=== PATIENT | male | born 1950 | race Caucasian/White ===

== ENCOUNTER 2017-01-13 18:44 | Inpatient (IN) | payer MEDICARE, MEDICAID ==
[~2017-01-13] VITALS: Ht 180.3 cm; Wt 82.0 kg
[~2017-01-13 18:44] MED LIST: CHLORO250 PO; DICL50TA PO; ENAL20TA PO; ROBA750T PO
[2017-01-13 18:45] VITALS: BP 165/81; PULSE 108; RESP 18; TEMP 98.1; O2SAT 96
--- NOTE | 2017-01-13 18:56 | PD ---
HPI . Dysarthria and dysphagia Chief Complaint: Facial weakness Time Seen by Provider: 18:50 Travel History International Travel<30 days: No Contact w/Intl Traveler<30days: No History of Present Illness HPI The patient presents stating that the left side of his face feels weak. It felt weak on awakening this morning. He feels like his speech is slurred. He states that he had difficulty swallowing his food shortly prior to presentation. He presents to us concerned that he has had a stroke. He denies any unusual extremity weakness. He does not have a headache or diplopia. The patient reports a history of bone cancer. He states that he also has a mass in his throat. 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; skin ca) Social History Alcohol Use: No Tobacco Use: No (former smoker) Substance Use: No Allergies-Medications (Allergen,Severity, Reaction): Coded Allergies: No Known Allergies (Unverified , 07/23/16) Reported Meds & Prescriptions Reported Meds & Active Scripts Active Robaxin (Methocarbamol) 750 Mg Tab 750 Mg PO TID PRN Diclofenac Potassium 50 Mg Tab 50 Mg PO TID PRN Reported Enalapril (Enalapril Maleate) 20 Mg Tab 20 Mg PO DAILY Chlorothiazide 250 Mg Tab 250 Mg PO DAILY Review of Systems Except as stated in HPI: all other systems reviewed are Neg General / Constitutional: No: Fever, Chills Eyes: No: Diploplia, Blurred Vision HENT: No: Headaches Respiratory: No: Shortness of Breath Gastrointestinal: No: Nausea Neurologic: Positive: Weakness, Focal Abnormalities, Slurred Speech, No: Change in Mentation Physical Exam Narrative GENERAL: Patient is awake and alert and in no acute distress. SKIN: Warm and dry. HEAD: Atraumatic. Normocephalic. EYES: Pupils equal and round. ENT: No nasal bleeding or discharge. Mucous membranes pink and moist. NECK: Trachea midline. CARDIOVASCULAR: Regular rate and rhythm. RESPIRATORY: No accessory muscle use. GASTROINTESTINAL: Abdomen soft, non-tender, nondistended. MUSCULOSKELETAL: Marked atrophy of his right upper extremity. Patient reports previous history of polio. NEUROLOGICAL: Awake and alert. No obvious cranial nerve deficits. Motor grossly within normal limits with the exception of the right upper extremity. Normal speech. PSYCHIATRIC: Appropriate mood and affect; insight and judgment normal. Data Data Orders Electrocardiogram (01/13/17 18:47) Prothrombin Time / Inr (Pt) (01/13/17 18:47) Act Partial Throm Time (Ptt) (01/13/17 18:47) Complete Blood Count With Diff (01/13/17 18:47) Comprehensive Metabolic Panel (01/13/17 18:47) Creatine Kinase (Cpk) (01/13/17 18:47) Troponin I (01/13/17 18:47) Ct Brain W/O Iv Contrast(Rout) (01/13/17 18:47) Ecg Monitoring (01/13/17 18:47) Iv Access Insert/Monitor (01/13/17 18:47) Oximetry (01/13/17 18:47) Blood Glucose (01/13/17 18:47) Sodium Chloride 0.9% Flush (Ns Flush) (01/13/17 19:00) MDM Medical Decision Making Medical Screen Exam Complete: Yes Emergency Medical Condition: Yes Differential Diagnosis Differential diagnosis includes but is not limited to TIA, CVA, brain tumor, migraine, anxiety Narrative Course Patient presents concerned that he has had a stroke. He has had polio affecting his right upper extremity. Otherwise, his neurological exam is nonfocal. A stroke workup has been ordered. His care is being turned over to Dr. Rodriguez pending his workup. Diagnosis Primary Impression: Dysarthria Additional Impression: Dysphagia Qualified Code: R13.10 - Dysphagia, unspecified type Condition: Cassandra Lo MD Jan 13, 2017 18:56
[2017-01-13] MEDS ORDERED: SODIUM CHLORIDE 0.9% FLUSH 10 ML FLUSH IVF PRN (19:00)
[2017-01-13 19:04] LABS: AUTOMATED NEUTROPHIL # 3.5 TH/MM3 (1.8-7.7); BASOPHIL # 0.1 TH/MM3 (0-0.2); EOSINOPHIL # 0.1 TH/MM3 (0-0.4); HEMO FLAGS DIFF FINAL; LYMPH % 23.1 % (9.0-44.0); LYMPHOCYTE # 1.2 TH/MM3 (1.0-4.8); MEAN CORPUSCULAR HEMOGLOBIN 30.7 PG (27.0-34.0); MONO % 5.5 % (0.0-8.0); NEUT % 69.4 % (16.0-70.0); PLATELET COUNT 106 TH/MM3 (150-450); RED BLOOD COUNT 4.63 MIL/MM3 (4.50-5.90); WHITE BLOOD COUNT 5.2 TH/MM3 (4.0-11.0)
[2017-01-13 19:10] LABS: CHLORIDE 98 MEQ/L (98-107); SODIUM (NA) 134 MEQ/L (136-145)
[2017-01-13 19:14] LABS: ANION GAP 9 MEQ/L (5-15); BICARBONATE 27.2 MEQ/L (21.0-32.0); BLOOD UREA NITROGEN 12 MG/DL (7-18)
[2017-01-13 19:16] LABS: APTT (PATIENT) 27.1 SEC (24.3-30.1); INTERNATIONAL NORMALIZED RATIO 1.2 RATIO; PROTHROMBIN TIME - PATIENT 13.7 SEC (9.8-11.6)
[2017-01-13 19:17] LABS: ALT (GPT) 77 U/L (12-78); AST (GOT) 541 U/L (15-37); GLOMERULAR FILTRATION RATE 76 ML/MIN (>89)
[2017-01-13 19:19] LABS: TOTAL BILIRUBIN ADULT 3.6 MG/DL (0.2-1.0)
--- NOTE | 2017-01-13 19:19 | RADRPT ---
EXAM DATE/TIME: 01/13/2017 18:52 [facility] COMPARISON: No previous studies available for comparison. INDICATIONS : Left facial weakness, slurred speech and difficulty swallowing since this morning. Evaluate for cere bral vascular accident. RADIATION DOSE: 60.73 CTDIvol (mGy) MEDICAL HISTORY : Hypertension. SURGICAL HISTORY : None. ENCOUNTER: Initial ACUITY: 1 day PAIN SCALE: 0/10 LOCATION: cranial TECHNIQUE: Multiple contiguous axial images were obtained of the head. Using automated exposure control and adj ustment of the mA and/or kV according to patient size, radiation dose was kept as low as reasonably a chievable to obtain optimal diagnostic quality images. DICOM format image data is available electro nically for review and comparison. FINDINGS: CEREBRUM: The ventricles are normal for age. No evidence of midline shift, mass lesion, hemorrhage or acute in farction. No extra-axial fluid collections are seen. POSTERIOR FOSSA: The cerebellum and brainstem are intact. The 4th ventricle is midline. The cerebellopontine angle i s unremarkable. EXTRACRANIAL: The visualized portion of the orbits is intact. SKULL: The calvaria is intact. No evidence of skull fracture. CONCLUSION: No acute disease. Eloy Garg Jr., MD on January 13, 2017 at 19:16 Board Certified Radiologist. This report was verified electronically.
[2017-01-13 19:20] LABS: ALKALINE PHOSPHATASE 482 U/L (45-117)
[2017-01-13 19:21] LABS: CREATINE KINASE 32 U/L (39-308)
[2017-01-13] MEDS ORDERED: OXYC-259 PO (19:26)
[2017-01-13 19:28] VITALS: PULSE 101; O2SAT 96
--- NOTE | 2017-01-13 19:41 | PD ---
Physical Exam Time Seen by Provider: 19:[address] Carlson left this patient with me to check the laboratory/imaging and make a disposition. Data Data Last Documented VS Vital Signs Date Time Temp Pulse Resp B/P Pulse Ox O2 Delivery O2 Flow Rate FiO2 01/13/17 19:31 101 Room Air 01/13/17 19:28 96 01/13/17 18:45 98.1 18 165/81 Orders Electrocardiogram (01/13/17 18:47) Prothrombin Time / Inr (Pt) (01/13/17 18:47) Act Partial Throm Time (Ptt) (01/13/17 18:47) Complete Blood Count With Diff (01/13/17 18:47) Comprehensive Metabolic Panel (01/13/17 18:47) Creatine Kinase (Cpk) (01/13/17 18:47) Troponin I (01/13/17 18:47) Ct Brain W/O Iv Contrast(Rout) (01/13/17 18:47) Ecg Monitoring (01/13/17 18:47) Iv Access Insert/Monitor (01/13/17 18:47) Oximetry (01/13/17 18:47) Blood Glucose (01/13/17 18:47) Sodium Chloride 0.9% Flush (Ns Flush) (01/13/17 19:00) Labs Laboratory Tests Test 01/13/17 18:50 White Blood Count 5.2 TH/MM3 Red Blood Count 4.63 MIL/MM3 Hemoglobin 14.2 GM/DL Hematocrit 43.0 % Mean Corpuscular Volume 93.0 FL Mean Corpuscular Hemoglobin 30.7 PG Mean Corpuscular Hemoglobin 33.0 % Concent Red Cell Distribution Width 17.0 % Platelet Count 106 TH/MM3 Mean Platelet Volume 10.3 FL Neutrophils (%) (Auto) 69.4 % Lymphocytes (%) (Auto) 23.1 % Monocytes (%) (Auto) 5.5 % Eosinophils (%) (Auto) 1.0 % Basophils (%) (Auto) 1.0 % Neutrophils # (Auto) 3.5 TH/MM3 Lymphocytes # (Auto) 1.2 TH/MM3 Monocytes # (Auto) 0.3 TH/MM3 Eosinophils # (Auto) 0.1 TH/MM3 Basophils # (Auto) 0.1 TH/MM3 CBC Comment DIFF FINAL Differential Comment Prothrombin Time 13.7 SEC Prothromb Time International 1.2 RATIO Ratio Activated Partial 27.1 SEC Thromboplast Time Sodium Level 134 MEQ/L Potassium Level 4.0 MEQ/L Chloride Level 98 MEQ/L Carbon Dioxide Level 27.2 MEQ/L Anion Gap 9 MEQ/L Blood Urea Nitrogen 12 MG/DL Creatinine 0.99 MG/DL Estimat Glomerular Filtration 76 ML/MIN Rate Random Glucose 87 MG/DL Calcium Level 8.4 MG/DL Total Bilirubin 3.6 MG/DL Aspartate Amino Transf 541 U/L (AST/SGOT) Alanine Aminotransferase 77 U/L (ALT/SGPT) Alkaline Phosphatase 482 U/L Total Creatine Kinase 32 U/L Troponin I LESS THAN 0.02 NG/ML Total Protein 7.3 GM/DL Albumin 2.6 GM/DL MDM Medical Record Reviewed: Yes Supervised Visit with SHAQ: Yes Interpretation(s) The CBC is normal. The coagulation profile is normal except for a ProTime of 13.7. The sodium is 137, GFR of 76, calcium 8.4, total bilirubin of 3.6 and AST of 541 with alkaline phosphatase of 482 and CK of 32 and albumin 2.6. The troponin I is less than 0.02. The CT of the brain shows no acute disease. Differential Diagnosis Ischemic CVA, brain metastases, liver metastases, electrolyte disorder, anemia Narrative Course The patient may have had an ischemic CVA. This time I cannot detect any focal neurologic change or any slurred speech that the patient complained of when he came in. He may have liver metastases which accounts for the elevation of his liver enzymes. I discussed the patient with Dr. John, the patient will be admitted to him. Diagnosis Primary Impression: Dysarthria Additional Impressions: Dysphagia Qualified Code: R13.10 - Dysphagia, unspecified type Liver enzyme elevation Admitting Information Admitting Physician Requests: Admit Condition: Stable Luis Rodriguez MD Jan 13, 2017 19:40
[2017-01-13] MEDS ORDERED: ASPIRIN 325 MG TAB PO ONE (20:00)
[2017-01-13] MEDS: SODIUM CHLOR 0.9% 1000 ML INJ 1,000 ML IV SCH (20:11)
[2017-01-13 21:22] VITALS: BP 158/82; PULSE 86; RESP 18; TEMP 98.2; O2SAT 98
[2017-01-14 00:21] VITALS: BP 142/81; PULSE 86; RESP 16; TEMP 97.4; O2SAT 93
[2017-01-14] MEDS: MORPHINE SULFATE 4 MG/ML INJ IV PUSH PRN ×3 (03:09→21:38)
[2017-01-14] MEDS: SODIUM CHLOR 0.9% 1000 ML INJ 1,000 ML IV SCH ×3 (04:22→20:00)
[2017-01-14 06:05] LABS: AUTOMATED NEUTROPHIL # 2.2 TH/MM3 (1.8-7.7); BASOPHIL % 0.5 % (0.0-2.0); EOSINOPHIL # 0.1 TH/MM3 (0-0.4); EOSINOPHIL % 1.9 % (0.0-4.0); HEMATOCRIT 36.8 % (39.0-51.0); LYMPH % 31.4 % (9.0-44.0); LYMPHOCYTE # 1.2 TH/MM3 (1.0-4.8); MEAN CELL VOLUME 93.2 FL (80.0-100.0); MEAN CORPUSCULAR HEMOGLOBIN 32.2 PG (27.0-34.0); MEAN CORPUSCULAR HGB CONC 34.5 % (32.0-36.0); MONO % 8.7 % (0.0-8.0); NEUT % 57.5 % (16.0-70.0); PLATELET COUNT 74 TH/MM3 (150-450); RED BLOOD COUNT 3.95 MIL/MM3 (4.50-5.90); RED CELL DISTRIBUTION WIDTH 16.8 % (11.6-17.2); WHITE BLOOD COUNT 3.8 TH/MM3 (4.0-11.0)
[2017-01-14 06:08] LABS: HEMO FLAGS AUTO DIFF
[2017-01-14 06:13] LABS: POTASSIUM 3.5 MEQ/L (3.5-5.1)
[2017-01-14 06:25] LABS: PLATELET ESTIMATE SMEAR LOW (NORMAL); PLATELET MORPHOLOGY NORMAL (NORMAL); SCAN/DIFF AUTO DIFF CONFIRMED
[2017-01-14 06:33] LABS: BICARBONATE 27.4 MEQ/L (21.0-32.0); INDIRECT BILIRUBIN 0.9 MG/DL (0.0-0.8)
[2017-01-14 08:00] VITALS: BP 155/90; PULSE 80; RESP 17; TEMP 97.8; O2SAT 96
[2017-01-14] MEDS: CALCIUM CARBONATE 500 MG CHEWABLE TAB PO SCH ×3 (08:14→18:00)
--- NOTE | 2017-01-14 08:25 | RADRPT ---
EXAM DATE/TIME: 01/14/2017 07:07 [facility] COMPARISON: No previous studies available for comparison. INDICATIONS : Elevated LFTs. MEDICAL HISTORY : Hypertension. Carcinoma, skin. Carcinoma, liver. Carcinoma, bone. C3 mass. SURGICAL HISTORY : Back surgery. Cataract, right eye. ENCOUNTER: Initial ACUITY: 1 day PAIN SCORE: 4/10 LOCATION: Bilateral upper quadrant MEASUREMENTS: LIVER: 15.5 cm length COMMON DUCT: 1 mm RIGHT KIDNEY: 10.0 x 4.8 x 3.9 cm SPLEEN: 14.0 cm length FINDINGS: LIVER: The liver is diffusely heterogeneous and coarse in echotexture. There appear to be multiple small hyp oechoic lesions throughout the liver. No definite dilated biliary ducts are demonstrated. There is so me mild ascites surrounding the liver. The portal system appears to be occluded with thrombus. COMMON DUCT: No intraluminal mass or stone visualized. GALLBLADDER: There is a large stone in the gallbladder measuring 2.4 cm. The gallbladder wall is not thickened. PANCREAS: The visualized portions are within normal limits. RIGHT KIDNEY: No hydronephrosis, stone or mass. SPLEEN: There appears to be a hypoechoic lesion in the spleen measuring 1.8 cm x 1.9 cm. CONCLUSION: 1. Liver is grossly abnormal with diffuse heterogeneous and coarse echotexture. The portal system israel ears to be thrombosed with very little portal venous flow. Multiple nonspecific hypoechoic lesions ar e seen throughout the liver. Recommend a CT scan of the abdomen/pelvis with IV contrast for further e valuation 2. 2.4 cm gallstone in the gallbladder. No biliary tract obstruction. 3. 1.9 cm hyperechoic lesion in the spleen. This is most likely a focal hemangioma. Kenneth Naik MD on January 14, 2017 at 8:17 Board Certified Radiologist. This report was verified electronically.
[2017-01-14] MEDS ORDERED: oxyCODONE HCL 10 MG CONTROLLED RELEASE TAB PO SCH (09:00)
[2017-01-14] MEDS ORDERED: LORazepam 2 MG/ML VIAL IV ONE (10:00)
[2017-01-14] MEDS ORDERED: GADODIAMIDE PF 287 MG/ML 20 ML VIAL (for RAD MRI) IV ONE (10:00)
[2017-01-14 10:03] LABS: MAGNESIUM 2.1 MG/DL (1.5-2.5)
[2017-01-14] MEDS: ENALAPRIL MALEATE 10 MG TAB PO SCH (10:03)
[2017-01-14] MEDS: ASPIRIN 325 MG TAB PO SCH (10:03)
[2017-01-14] MEDS: PANTOPRAZOLE SOD 40 MG DELAYED RELEASE TAB PO SCH (10:03)
--- NOTE | 2017-01-14 10:08 | MH ---
cc: ISRRAEL PINEDA MD DATE OF ADMISSION: 01/13/2017 CHIEF COMPLAINT Difficulty in swallowing, speaking and facial weakness. HISTORY OF PRESENT ILLNESS This is a 66-year-old male with past medical-surgical history significant for skin cancer, history of hypertension, history of inconclusive cancer, had a biopsy, from the bone and possible metastasis to the liver. He is wheelchair because he has had radiation therapy on the left hip. He goes to [facility] [place] to see his oncologist. He is having difficulty swallowing for the last three months and he said yesterday in the morning, he had a left-sided facial weakness and also had difficulty swallowing which got worse and also difficulty in speaking, and he also had tongue which did not go to the left side and he is unable to swallow, he waited a while at home and then at 8:00 p.m. last night he decided to come to the [facility] emergency room. He is saying that he is still has slurred speech and difficulty swallowing. He is concerned that he had a stroke. Denies any unusual extremity weakness. He had a polio on the right upper extremity with a contracted arm. He denies any headache or diplopia. Denies any numbness, tingling denies any weakness of the extremity except for the right upper extremity which had polio and contractures and he denies any other symptoms other than that nothing significant. PAST MEDICAL HISTORY: Past medical history as dictated above. 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 ALLERGIES NO KNOWN DRUG ALLERGIES. MEDICATIONS 1. Robaxin 750 mg p.o. t.i.d. 2. Diclofenac his kilogram p.o. t.i.d. 3. Enalapril 20 mg p.o. daily. 4. Chloride thiazide 250 mg p.o. daily. SOCIAL HISTORY He is a former smoker, quit 10 years ago he denies drinking and abusing any drugs. He lives at home. 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 FAMILY HISTORY Nothing significant. REVIEW OF SYSTEMS: Review of systems positive for difficulty in speaking, swallowing and left-sided facial weakness and slurred speech, right upper extremity polio contractures. All other review of systems are negative. PHYSICAL EXAMINATION IN GENERAL: This is 66-year male laying on the bed not in acute distress. VITAL SIGNS: Temperature 97.8, heart rate 80, respiration 17, blood pressure 155/90, O2 saturation 96% on room air. HEAD, EYES, EARS, NOSE, AND THROAT: Normocephalic, atraumatic. Extraocular muscles intact, Pupils equal, round, reactive to light and accommodation. Oral mucosa is moist. NECK: Neck is supple. No visible thyromegaly or neck mass. Trachea central. CARDIOVASCULAR SYSTEM: Regular rate and rhythm. LUNGS: Respirations clear to auscultation bilaterally. ABDOMEN: The abdomen is soft, nontender, bowel sounds audible. EXTREMITIES: The extremities show the right upper extremity contracture because of the polio and atrophy of the muscle. NEUROLOGIC: Awake, alert, oriented x4. No obvious cranial deficits. No gross motor and sensory deficit. Normal speech. PSYCHIATRIC: Mood and effect is normal. SKIN: Warm and dry. LABORATORY DATA Include CBC shows white blood count at 3.8 low, The hemoglobin 12.7. Hematocrit 36.8 low, platelet count 74 low. BMP shows sodium was 134 now it is 136, otherwise BMP is normal except for calcium 7.3 low, and GFR 72 low. Total bilirubin 3.0. Direct bilirubin 2.1, intact bilirubin 0.9, AST 428, alkaline phosphatase 359, total protein 5.8 low albumin 2.1 low, troponin-I less than 0.02. PT 13.7, INR 1.2, APTT 27.1. Liver ultrasound done shows the liver is grossly abnormal with diffuse heterogenous and course echotexture the portal system appeared to be thrombosed with very little portal vein flow multiple nonspecific hyperechoic lesions are seen throughout the liver. Recommend a CT scan of the abdomen and pelvis with IV contrast to further evaluation. 2.4 cm gallstone the gallbladder no biliary tract obstruction 1.9 cm hyperechoic lesion in the Spleen, this is likely a focal hemangioma. CT brain done shows nothing acute. ASSESSMENT/PLAN 1. This is a 66-year male who came to the ER diagnosed with slurred speech, difficulty in swallowing and left-sided facial weakness rule out stroke. Check the patients swallow evaluation. The patient was given aspirin. We will continue that. 2. CT brain does not show anything acute. The neurology is consulted. Neuro Check every 6-hour. Further recommendation per neurology. 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 3. History of inconclusive cancer with most likely metastasis to the liver and the patient seeing the oncologist at [facility], I will consult oncology. 4. History of hypertension. Continue home medications. 5. History of arthritis. Continue home medications. 6. High liver function tests, most likely secondary to metastatic liver disease. 7. Anemia. I will check iron study, B12, folic acid level. 8. Deep venous thrombosis prophylaxis, Lovenox, SCD. 9. Gastrointestinal prophylaxis Protonix 40 mg p.o. daily. 10. We are going to manage the patient daily basis, make recommendations on a daily basis. Isrrael Pineda MD EA/gabbie /8:55 AM /9:24 AM
[2017-01-14] MEDS: oxyCODONE HCL 10 MG CONTROLLED RELEASE TAB PO SCH ×3 (10:14→21:37)
--- NOTE | 2017-01-14 11:51 | PD.CONS ---
History of Present Illness Service Neurology Consult Requested By medical Reason for Consult dysarthria Primary Care Physician No Primary Care Physician History of Present Illness 66 y/o m admitted for difficulty swallowing. he has a hx of cancer and receives care from [facility] in [place]. In fact, he was there last week. he has not been able to set up an appt with a local oncologist he states. He does not have a headache or diplopia, vision loss, vertigo, taste changes. he states he may be getting into a clinical trial. hx of rt ue weakness 2/2 polio at age 8 months. 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; skin ca) Social History Alcohol Use: No Tobacco Use: No (former smoker) Substance Use: No Allergies-Medications (Allergen,Severity, Reaction): Coded Allergies: No Known Allergies (Unverified , 07/23/16) Reported Meds & Prescriptions Reported Meds & Active Scripts Active Robaxin (Methocarbamol) 750 Mg Tab 750 Mg PO TID PRN Diclofenac Potassium 50 Mg Tab 50 Mg PO TID PRN Reported Enalapril (Enalapril Maleate) 20 Mg Tab 20 Mg PO DAILY Chlorothiazide 250 Mg Tab 250 Mg PO DAILY Review of Systems Except as stated in HPI: all other systems reviewed are Neg Review of Systems All other ROS: ROS reviewed as documented in chart Past Family Social History Allergies: Coded Allergies: No Known Allergies (Unverified , 01/13/17) Active Ordered Medications Current Medications Medications (Trade) Dose Ordered Sig/Pablo Route Start Time Stop Time Status Last Admin Sodium Chloride 2 ml 2 ml UNSCH PRN IVF 01/13/17 19:00 (NS 1000 ml Inj) 1,000 ml @ 125 mls/hr Q8H IV 01/13/17 20:00 01/14/17 08:17 (Morphine Inj) 4 mg Q3H PRN IV PUSH 01/13/17 23:30 01/14/17 08:15 (Tums Chew) 500 mg TID PO 01/14/17 09:00 01/14/17 08:14 (Protonix) 40 mg DAILY PO 01/14/17 09:00 01/14/17 10:03 (Vasotec) 20 mg DAILY PO 01/14/17 09:00 01/14/17 10:03 (Aspirin) 325 mg DAILY PO 01/14/17 09:15 01/14/17 10:03 (OxyCONTIN CR) 10 mg Q6H PO 01/14/17 10:00 01/14/17 10:14 Exam I&O / VS 01/13/17 01/13/17 01/14/17 15:00 23:00 07:00 Intake Total 240 ml Balance 240 ml Intake Oral 240 ml # Voids 1 Vital Signs Date Time Temp Pulse Resp B/P Pulse Ox O2 Delivery O2 Flow Rate FiO2 01/14/17 08:00 97.8 80 17 155/90 96 01/14/17 04:42 01/14/17 00:21 97.4 86 16 142/81 93 01/13/17 21:22 98.2 86 18 158/82 98 01/13/17 19:31 101 Room Air 01/13/17 19:28 101 96 Room Air 01/13/17 18:45 98.1 108 18 165/81 96 General: Alert and Oriented, No acute distress Eye: Normal conjuctiva Respiratory: Non-labored respirations Cardiology: Normal rate Neurologic: Alert, Oriented, Normal sensory, Normal DTR's Psychiatric: Cooperative, Appropriate mood & affect, Normal judgement, Non- suicidal Exam Comments ox 3, cachectic appearing, eomi, vff, no ptosis, ou 3-2mm, left lateral tongue mild deviation and slight atrophy, shoulder shrug symmetric with mild trap atrophy, palate appears to rise symmetrically, smile sym, rt ue paretic-chronic , mild left le 5-5/, rest 5/5, no clonus, planter flexor Review/Management Diagnosis/Plan: (1) Brain metastases Plan: would be concerned about mets to left hypoglossal canal/skull base less likely stroke recs f/u mri brain with contrast onc eval ?lp- get onc input and mri report f/u at [facility] (2) Liver enzyme elevation (3) Dysphagia (4) Osteoarthritis of left hip Problem Qualifiers (1) Dysphagia: Qualified Code: R13.10 - Dysphagia, unspecified type (2) Osteoarthritis of left hip: Qualified Code: M16.12 - Osteoarthritis of left hip, unspecified osteoarthritis type Timur Valdes MD Jan 14, 2017 11:51
--- NOTE | 2017-01-14 11:54 | RADRPT ---
EXAM DATE/TIME: 01/14/2017 10:42 [facility] COMPARISON: No previous studies available for comparison. INDICATIONS : Dysarthria. MEDICAL HISTORY : Carcinoma, squamous cell. Carcinoma, bone. Carcinoma, hepatocellular. SURGICAL HISTORY : Discectomy, lumbar. Muscle transplant right arm. ENCOUNTER: Initial ACUITY: 2 day PAIN SCORE: 0/10 LOCATION: cranial Please note a normal MRA of the brain does not entirely exclude the possibility of a small aneurysm, nor the possibility of distal intracranial vessel disease. TECHNIQUE: 3D time of flight MRA was performed. Source images, multiplanar STS MIP, and 3D volume MIP reconstru ctions were reviewed. FINDINGS: There is excellent visualization of the major intracranial arteries out to the second-order branch ve ssels. There is no evidence for aneurysm, vessel truncation or stenosis, and no evidence for vascula r malformation. CONCLUSION: Normal exam. Kenneth Naik MD on January 14, 2017 at 11:52 Board Certified Radiologist. This report was verified electronically.
--- NOTE | 2017-01-14 11:54 | RADRPT ---
EXAM DATE/TIME: 01/14/2017 10:42 [facility] COMPARISON: CT BRAIN W/O CONTRAST, January 13, 2017, 18:52. INDICATIONS : Dysarthria. CONTRAST: 14 cc Omniscan (gadodiamide) IV MEDICAL HISTORY : Metastatic, bone. Carcinoma, hepatocellular. SURGICAL HISTORY : Discectomy, lumbar. Muscle transplant right arm. ENCOUNTER: Initial ACUITY: 2 day PAIN SCORE: 0/10 LOCATION: cranial TECHNIQUE: Multiplanar, multisequence MRI of the brain was performed both prior to and following the administrat ion of paramagnetic contrast. FINDINGS: CEREBRUM: The ventricles are normal for age. There is bilateral cortical atrophy. No evidence of midline shift, mass lesion, hemorrhage or acute infarction. No extraaxial fluid collections are seen. The pituita ry gland and suprasellar cistern are normal in configuration. WHITE MATTER: No significant signal abnormalities are seen in the white matter. A few high signal spots are seen in the white matter tracks characteristic of ischemic demyelinization. POSTERIOR FOSSA: The cerebellum and brainstem are intact. The 4th ventricle is midline. The cerebellopontine angle is unremarkable. The cerebellar tonsils are normal in position. DIFFUSION IMAGING: No focal areas of restricted diffusion are seen. No evidence of acute infarction. EXTRACRANIAL: The visualized portions of the orbits and paranasal sinuses are unremarkable. POST-CONTRAST: No abnormal areas of parenchymal or dural enhancement. No evidence of blood-brain barrier breakdown. CONCLUSION: 1. Bilateral cortical atrophy and mild chronic white matter changes. 2. Otherwise unremarkable study for patient's age. Kenneth Naik MD on January 14, 2017 at 11:50 Board Certified Radiologist. This report was verified electronically.
[2017-01-14 12:00] VITALS: BP 167/93; PULSE 94; RESP 20; TEMP 97.7; O2SAT 92
--- NOTE | 2017-01-14 12:16 | EKG ---
Date Performed: 01/13/2017 Time Performed: 18:49:54 PTAGE: 66 years EKG: SINUS TACHYCARDIA WITH OCCASIONAL SUPRAVENTRICULAR PREMATURE COMPLEXES MARKED LEFT AXIS DEV IATION PATTERN CONSISTENT WITH PULMONARY DISEASE ABNORMAL ECG NO PREVIOUS TRACING DOCTOR: Juan Francisco Lockwood Interpretating Date/Time 01/14/2017 12:13:39
[2017-01-14 12:47] LABS: TRANSFERRIN IRON PROFILE 97 MG/DL (200-360)
[2017-01-14 16:00] VITALS: BP 148/90; PULSE 88; RESP 19; TEMP 97.6; O2SAT 94
[2017-01-14 20:22] VITALS: BP 128/76; PULSE 87; RESP 18; TEMP 97.7; O2SAT 95
--- NOTE | 2017-01-14 21:21 | MB ---
cc: BRUCE ESCALANTE MD, RUBY ANNE E. M.D. DATE OF CONSULTATION: 01/14/2017 REASON FOR CONSULTATION / CHIEF COMPLAINT: Dr. Escalante requested consultation for Mr. Salter with questionable cancer. REFERRING PHYSICIAN: Dr. Bruce Escalante. HISTORY OF PRESENT ILLNESS: Mr. 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 He has a history of hepatitis C and heavy drinking, more that 20 years ago. He was treated for his hepatitis C about three years ago. He reports that despite this he has underlying cirrhosis. He has been treated by an oncologist in [facility]. After much discussion, it turns out his oncologist is Dr. Stuart Santizo, telephone number [phone] [facility]. He has does not have any records from Dr. Santizo. From Mr. 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 He has received radiation to the bone. He insists that the biopsy in his hip was inconclusive. He denies having liver biopsy. He describes that he was taking Nexavar. His Nexavar was on hold specifically in anticipation of participating in a clinical trial at [facility]. He could not give me any information about his [facility] physicians. He reports that his doctor at [facility] is a Dr. Abbott with no first name or contact. He insists that his socially responsible investment adviser is [employer]az, telephone number [phone] and alternate number of [phone]. He insists that if we just give his name that all the information can be provided by the above-said persons. I reminded him about the HIPAA law that protects him. He comes in today with difficulty swallowing, speaking and facial weakness. He thought he was having a stroke. He was seen earlier by the neurologist. Workup included CT of the head, which shows no acute disease. His MRA is normal. His brain MRI shows bilateral cortical atrophy and mild chronic white matter changes, otherwise unremarkable for the patient's age. There is no stroke. He was evaluated by Dr. Valdes who suspected he may have had a left hypoglossal canal / skull based metastatic disease. Indeed, the MRI is negative. Mr. Salter at this point is impatient as to when he is going to go home. He seems to have a very simplistic understanding of his cancer. He is asking when is he going to get his bone shot. It turns out he is talking about Xgeva, which is adjunctive therapy to bony metastatic disease. We did discussed I am surprised his [facility] doctors have not decided to stop the Xgeva pending his participation in a clinical trial. He has no answer for that. He moved to the [place] area to be near family. He did not specify. He also reports that he is closer to [facility] [place] He admits that his abdomen is distended. He reports having a neck mass. I have no medical records to review regarding his various complaints. He states that he has established care with some medical oncologist at [facility], he does not know the name or the gender of that physician. He has an appointment in two weeks time. The above information is very sketchy to sketchy, which reflects the patient simple understanding of his cancer and how the medical system works. PAST MEDICAL HISTORY: 1. Chronic active hepatitis C. 2. Liver cirrhosis. 3. Chronic history of smoking. 4. Polio. PAST SURGICAL HISTORY: 1. Muscle transplant. 2. Skin cancer. 3. Radiation to the left hip. SOCIAL HISTORY: Former smoker; quit ten years ago. Quit drinking twenty years ago. He denies illicit drug use. FAMILY HISTORY: No family history of cancer. He reports his mother of old age in her 80s and the father of old age in his 90s. PHYSICAL EXAMINATION: VITAL SIGNS: Temperature 97.6, heart rate 88, respiratory rate 19, blood pressure 148/90, saturation 94%. GENERAL: Mr. Salter is a well-developed well-nourished loud man in no acute distress. HEAD, EYES, EARS, NOSE, THROAT: His pupils are round and reactive to light and accommodation. The sclerae are mildly icteric. Oropharynx is clear. There is a scar in the middle of his forehead. NECK: The neck is supple. LUNGS: Lungs are clear to auscultation. CARDIOVASCULAR: Exam reveals a normal rate, rhythm. ABDOMEN: Abdomen is distended, benign. A fluid wave is noted. EXTREMITIES: Lower extremities with no edema. He has some slight weakness on the right arm which is atrophied compared to his left. SKIN: He has freckling skin. No obvious lesions. LABORATORY DATA: Significant for pancytopenia. White blood cell count 3.8, hemoglobin 12.7, platelet count of 74,000. Chemistry is significant for bilirubin 3.0, predominantly direct. AST 428, ALT 359, alpha-fetoprotein is not available. PT prolonged at 37.7 seconds. Albumin is 2.1. IMAGING STUDIES: Ultrasound of the liver shows diffuse heterogeneous coarse echo texture, thrombosed portal vein, multiple hypoechoic lesions seen throughout the liver, a 1.9 cm hyperechoic lesion in the spleen, focal hemangioma. ASSESSMENT AND PLAN: Mr. Salter is a 66-year-old man with multiple medical problems described above. He is admitted for neurologic complaints of difficulty swallowing, speaking and facial weakness. It appears he has a history of cirrhosis and chronic active hepatitis C that was treated. He reports being in remission for his hepatitis C. He has a diagnosis of hepatocellular cancer from the patient's vague explanation and appears to have metastatic disease to bone. I have no pathology year radiographic evaluation to support his claim. It appears evident from the laboratory evaluation that he has at least a Child class C cirrhosis. His albumin is decreased. His bilirubin is elevated. His PT is prolonged. He has no encephalopathy. He appears to have ascites. We will request records from [facility], Dr. Stuart Santizo. We will also try to locate his physician, Dr. Abbott. This would help the medical oncologist he is see at [facility]. He is looking to establish care here. In the meantime, no specific therapy is required from an oncology standpoint. Suspect the pancytopenia is related to his underlying liver disease and hypersplenism. 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 No specific treatment is recommended at present. He is advised to continue DVT prophylaxis during his hospitalization. On admission, he was not on anticoagulant therapy. Once his records are obtained, we may able to continue the treatment that was initiated by his primary oncologist and coordinate the treatment that he plans to get through [facility] via clinical trial. I defer to Dr. Valdes regarding his neurologic of presentation. Those symptoms appear to have resolved at present. He is eager to go home. He will need follow up with medical oncology. He is advised to keep his appointment. His questions were answered to his satisfaction. MD TANI Dubois/LYNDA /8:30 PM /8:56 PM SHAWN
[2017-01-15 00:35] VITALS: BP 111/70; PULSE 102; RESP 18; TEMP 96.7; O2SAT 96
[2017-01-15] MEDS: oxyCODONE HCL 10 MG CONTROLLED RELEASE TAB PO SCH ×4 (04:00→22:00)
[2017-01-15] MEDS: SODIUM CHLOR 0.9% 1000 ML INJ 1,000 ML IV SCH ×2 (04:50→15:58)
--- NOTE | 2017-01-15 06:10 | HHI.PR ---
Subjective History of Present Illness Patient feel weak and tired still c/o difficulity in speech MRI / MRA of Brain within normal limits Neurology/ Oncology input noted. D/W JUSTIN Torrez. Review of Systems Constitutional Constitutional: Fatigue, Weakness Vitals/Results Intake & Output 01/14/17 01/14/17 01/15/17 15:00 23:00 07:00 Intake Total 806 ml Balance 806 ml Intake Oral 410 ml IV Total 396 ml # Voids 1 # Bowel Movements 1 Vital Signs Vital Signs Date Time Temp Pulse Resp B/P Pulse Ox O2 Delivery O2 Flow Rate FiO2 01/15/17 05:08 01/15/17 00:35 96.7 102 18 111/70 96 01/14/17 20:22 97.7 87 18 128/76 95 01/14/17 18:39 20 01/14/17 16:00 97.6 88 19 148/90 94 01/14/17 12:00 97.7 94 20 167/93 92 01/14/17 08:20 20 01/14/17 08:00 97.8 80 17 155/90 96 CBC/BMP: 01/14/17 0535 01/14/17 0535 Lab Results Laboratory Tests Test 01/14/17 09:18 Phosphorus Level 2.5 MG/DL Magnesium Level 2.1 MG/DL Iron Level 66 MCG/DL Total Iron Binding Capacity 136 MCG/DL Percent Iron Saturation 48.6 % Vitamin B12 Level 450 PG/ML Folate 4.5 NG/ML Thyroid Stimulating Hormone 3.700 uIU/ML 3rd Gen Physical Exam General General Appearance: No Acute Distress, Comfortable Eyes Eye Exam: Pupils Equal, Pupils Reactive, Sclera White, Extraocular Movement Intact Throat Throat Exam: Oral Mucosa [place] & Moist, Oral Pharynx Normal Neck Neck Exam: Neck Supple, Trachea Midline Pulmonary Resp Exam: Clear Bilaterally, Breath Sounds Equal, No Distress Cardiology CV Exam: Regular, Normal Sinus Rhythm Musculoskeletal MS Exam: Normal Tone Integumentary Skin Exam: Clear, Warm, Dry, Intact Extremeties Extremities Exam: No Edema Neurologic Neuro Exam: Alert, Awake, Oriented, Moving All Extremities Psychiatric Psych Exam: Appropriate Responses VTE Prophylaxis VTE Prophylaxis Device: SCDs PUD Prophylasis PUD Prophylaxis: Protonix Assessment/Plan Assessment/Plan ASSESSMENT/PLAN 1. This is a 66-year male who came to the ER diagnosed with slurred speech, difficulty in swallowing and left-sided facial weakness rule out stroke. Check the patients swallow evaluation... within normal limits The patient was given aspirin. We will continue that. CT brain does not show anything acute. The neurology is input noted. Neuro Check every 6-hour. MRI / MRA of Brain within normal limits Further recommendation per neurology. 2. 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 3. History of inconclusive cancer with most likely metastasis to the liver and the patient seeing the oncologist at [place], oncology input noted. 4. History of hypertension. Continue home medications. 5. History of arthritis. Continue home medications. 6. High liver function tests, most likely secondary to metastatic liver disease. 7. Anemia. checked iron study, B12, folic acid level...within normal limits. 8. Deep venous thrombosis prophylaxis, Lovenox, SCD. 9. Gastrointestinal prophylaxis Protonix 40 mg p.o. daily. 10. Hyperlipidemia start zocor 40 mg PO Daily. 10. We are going to manage the patient daily basis, make recommendations on a daily basis. Discussed Condition with: Patient Isrrael Escalante MD Jan 15, 2017 06:10
[2017-01-15] MEDS ORDERED: ASPI81CH CHEW (06:14)
[2017-01-15 06:47] LABS: AUTOMATED NEUTROPHIL # 1.9 TH/MM3 (1.8-7.7); BASOPHIL % 0.6 % (0.0-2.0); EOSINOPHIL # 0.1 TH/MM3 (0-0.4); EOSINOPHIL % 2.2 % (0.0-4.0); LYMPH % 30.6 % (9.0-44.0); MEAN CELL VOLUME 93.8 FL (80.0-100.0); MEAN CORPUSCULAR HEMOGLOBIN 31.7 PG (27.0-34.0); MEAN CORPUSCULAR HGB CONC 33.8 % (32.0-36.0); MONO % 7.6 % (0.0-8.0); PLATELET COUNT 68 TH/MM3 (150-450); RED BLOOD COUNT 3.84 MIL/MM3 (4.50-5.90); RED CELL DISTRIBUTION WIDTH 17.3 % (11.6-17.2); WHITE BLOOD COUNT 3.2 TH/MM3 (4.0-11.0)
[2017-01-15 06:52] LABS: HEMO FLAGS AUTO DIFF
[2017-01-15 06:54] LABS: POTASSIUM 3.7 MEQ/L (3.5-5.1)
[2017-01-15 07:06] LABS: BICARBONATE 27.2 MEQ/L (21.0-32.0); CALCIUM-PROTEIN CORRECTED 8.1 MG/DL (8.5-10.1)
[2017-01-15 07:27] LABS: SCAN/DIFF AUTO DIFF CONFIRMED
[2017-01-15 08:00] VITALS: BP 136/96; PULSE 84; RESP 17; TEMP 98.4; O2SAT 98
[2017-01-15 09:04] LABS: HDL CHOLESTEROL 11.7 MG/DL (40.0-60.0)
[2017-01-15] MEDS: ASPIRIN 325 MG TAB PO SCH (10:16)
[2017-01-15] MEDS: CALCIUM CARBONATE 500 MG CHEWABLE TAB PO SCH ×3 (10:17→18:24)
[2017-01-15] MEDS: PANTOPRAZOLE SOD 40 MG DELAYED RELEASE TAB PO SCH (10:17)
[2017-01-15] MEDS: ENALAPRIL MALEATE 10 MG TAB PO SCH (10:18)
[2017-01-15] MEDS: MORPHINE SULFATE 4 MG/ML INJ IV PUSH PRN ×3 (12:40→22:22)
[2017-01-15 16:00] VITALS: BP 133/77; PULSE 71; RESP 18; TEMP 97.6; O2SAT 96
[2017-01-15 19:49] VITALS: BP 127/74; PULSE 91; RESP 16; TEMP 98.3; O2SAT 95
[2017-01-16 00:24] VITALS: BP 128/70; PULSE 87; RESP 18; TEMP 98; O2SAT 96
[2017-01-16] MEDS: SODIUM CHLOR 0.9% 1000 ML INJ 1,000 ML IV SCH ×4 (04:00→14:14)
[2017-01-16] MEDS: oxyCODONE HCL 10 MG CONTROLLED RELEASE TAB PO SCH ×4 (04:00→21:23)
[2017-01-16] MEDS: MORPHINE SULFATE 4 MG/ML INJ IV PUSH PRN ×3 (05:51→14:15)
[2017-01-16 06:40] LABS: AUTOMATED NEUTROPHIL # 2.6 TH/MM3 (1.8-7.7); BASOPHIL % 0.9 % (0.0-2.0); EOSINOPHIL # 0.1 TH/MM3 (0-0.4); EOSINOPHIL % 2.3 % (0.0-4.0); HEMATOCRIT 37.9 % (39.0-51.0); LYMPH % 21.9 % (9.0-44.0); LYMPHOCYTE # 0.9 TH/MM3 (1.0-4.8); MEAN CELL VOLUME 94.1 FL (80.0-100.0); MEAN CORPUSCULAR HEMOGLOBIN 31.2 PG (27.0-34.0); MEAN CORPUSCULAR HGB CONC 33.2 % (32.0-36.0); MONO % 8.1 % (0.0-8.0); NEUT % 66.8 % (16.0-70.0); PLATELET COUNT 82 TH/MM3 (150-450); RED BLOOD COUNT 4.03 MIL/MM3 (4.50-5.90); WHITE BLOOD COUNT 3.9 TH/MM3 (4.0-11.0)
[2017-01-16 06:47] LABS: POTASSIUM 3.7 MEQ/L (3.5-5.1)
[2017-01-16 06:52] LABS: HEMO FLAGS AUTO DIFF
[2017-01-16 07:09] LABS: PLATELET ESTIMATE SMEAR LOW (NORMAL); PLATELET MORPHOLOGY NORMAL (NORMAL); SCAN/DIFF AUTO DIFF CONFIRMED
[2017-01-16 07:18] LABS: BICARBONATE 25.6 MEQ/L (21.0-32.0); CALCIUM-PROTEIN CORRECTED 7.9 MG/DL (8.5-10.1); TOTAL BILIRUBIN ADULT 2.4 MG/DL (0.2-1.0)
[2017-01-16 08:00] VITALS: BP 133/83; PULSE 89; RESP 18; TEMP 97.8; O2SAT 93
[2017-01-16] MEDS: ENALAPRIL MALEATE 10 MG TAB PO SCH (08:58)
[2017-01-16] MEDS: PANTOPRAZOLE SOD 40 MG DELAYED RELEASE TAB PO SCH (08:58)
[2017-01-16] MEDS: CALCIUM CARBONATE 500 MG CHEWABLE TAB PO SCH ×3 (08:59→17:05)
[2017-01-16] MEDS ORDERED: ASPIRIN 81 MG CHEW TAB PO SCH (09:00)
--- NOTE | 2017-01-16 09:41 | HHI.PR ---
Subjective History of Present Illness Patient feel weak and tired still c/o difficulity in speech MRI / MRA of Brain within normal limits Neurology/ Oncology input noted. DC plan when ok with neurology and oncology. Review of Systems Constitutional Constitutional: Fatigue, Weakness Vitals/Results Intake & Output 01/15/17 01/15/17 01/16/17 15:00 23:00 07:00 Intake Total 806 ml Output Total 400 ml 200 ml Balance 406 ml -200 ml IV Total 806 ml Output Urine Total 400 ml 200 ml # Voids 1 # Bowel Movements 1 0 Vital Signs Vital Signs Date Time Temp Pulse Resp B/P Pulse Ox O2 Delivery O2 Flow Rate FiO2 01/16/17 08:00 97.8 89 18 133/83 93 01/16/17 05:14 01/16/17 00:24 98.0 87 18 128/70 96 01/15/17 19:49 98.3 91 16 127/74 95 01/15/17 16:00 97.6 71 18 133/77 96 CBC/BMP: 01/16/17 0540 01/16/17 0540 Lab Results Laboratory Tests Test 01/16/17 05:40 White Blood Count 3.9 TH/MM3 Red Blood Count 4.03 MIL/MM3 Hemoglobin 12.6 GM/DL Hematocrit 37.9 % Mean Corpuscular Volume 94.1 FL Mean Corpuscular Hemoglobin 31.2 PG Mean Corpuscular Hemoglobin 33.2 % Concent Red Cell Distribution Width 18.0 % Platelet Count 82 TH/MM3 Mean Platelet Volume 10.4 FL Neutrophils (%) (Auto) 66.8 % Lymphocytes (%) (Auto) 21.9 % Monocytes (%) (Auto) 8.1 % Eosinophils (%) (Auto) 2.3 % Basophils (%) (Auto) 0.9 % Neutrophils # (Auto) 2.6 TH/MM3 Lymphocytes # (Auto) 0.9 TH/MM3 Monocytes # (Auto) 0.3 TH/MM3 Eosinophils # (Auto) 0.1 TH/MM3 Basophils # (Auto) 0.0 TH/MM3 CBC Comment AUTO DIFF Differential Comment AUTO DIFF CONFIRMED Platelet Estimate LOW Platelet Morphology Comment NORMAL Sodium Level 139 MEQ/L Potassium Level 3.7 MEQ/L Chloride Level 104 MEQ/L Carbon Dioxide Level 25.6 MEQ/L Anion Gap 9 MEQ/L Blood Urea Nitrogen 9 MG/DL Creatinine 0.65 MG/DL Estimat Glomerular Filtration 124 ML/MIN Rate Random Glucose 76 MG/DL Calcium Level 7.3 MG/DL Protein Corrected Calcium 7.9 MG/DL Total Bilirubin 2.4 MG/DL Aspartate Amino Transf 632 U/L (AST/SGOT) Alanine Aminotransferase 75 U/L (ALT/SGPT) Alkaline Phosphatase 367 U/L Total Protein 5.9 GM/DL Albumin 2.1 GM/DL Physical Exam General General Appearance: No Acute Distress, Comfortable Eyes Eye Exam: Pupils Equal, Pupils Reactive, Sclera White, Extraocular Movement Intact Throat Throat Exam: Oral Mucosa [place] & Moist, Oral Pharynx Normal Neck Neck Exam: Neck Supple, Trachea Midline Pulmonary Resp Exam: Clear Bilaterally, Breath Sounds Equal, No Distress Cardiology CV Exam: Regular, Normal Sinus Rhythm Musculoskeletal MS Exam: Normal Tone Integumentary Skin Exam: Clear, Warm, Dry, Intact Extremeties Extremities Exam: No Edema Neurologic Neuro Exam: Alert, Awake, Oriented, Moving All Extremities Psychiatric Psych Exam: Appropriate Responses VTE Prophylaxis VTE Prophylaxis Device: SCDs PUD Prophylasis PUD Prophylaxis: Protonix Assessment/Plan Assessment/Plan ASSESSMENT/PLAN 1. This is a 66-year male who came to the ER diagnosed with slurred speech, difficulty in swallowing and left-sided facial weakness rule out stroke. Check the patients swallow evaluation... within normal limits The patient was given aspirin. We will continue that. CT brain does not show anything acute. The neurology is input noted. Neuro Check every 6-hour. MRI / MRA of Brain within normal limits Further recommendation per neurology. 2. 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 3. History of inconclusive cancer with most likely metastasis to the liver and the patient seeing the oncologist at [place], oncology input noted. 4. History of hypertension. Continue home medications. 5. History of arthritis. Continue home medications. 6. High liver function tests, most likely secondary to metastatic liver disease. 7. Anemia. checked iron study, B12, folic acid level...within normal limits. 8. Deep venous thrombosis prophylaxis, SCD. 9. Gastrointestinal prophylaxis Protonix 40 mg p.o. daily. 10. Hyperlipidemia start Lipitor 10 mg PO Daily. 10. We are going to manage the patient daily basis, make recommendations on a daily basis. DC plan when ok with neurology and oncology. Discussed Condition with: Patient Isrrael Escalante MD Jan 16, 2017 09:40
[2017-01-16] MEDS: ATORVASTATIN 10 MG TAB PO SCH (10:01)
[2017-01-16 12:00] VITALS: BP 143/74; PULSE 96; RESP 18; TEMP 97.2; O2SAT 95
[2017-01-16 17:17] VITALS: BP 142/80; PULSE 87; RESP 19; TEMP 98.2; O2SAT 97
[2017-01-16 20:00] VITALS: BP 124/82; PULSE 98; RESP 18; TEMP 99.5; O2SAT 93
[2017-01-17] VITALS: BP 153/75; PULSE 84; RESP 16; TEMP 97.7; O2SAT 95
[2017-01-17] MEDS: SODIUM CHLOR 0.9% 1000 ML INJ 1,000 ML IV SCH ×3 (00:13→20:00)
[2017-01-17] MEDS: oxyCODONE HCL 10 MG CONTROLLED RELEASE TAB PO SCH ×3 (04:11→17:25)
[2017-01-17 06:47] LABS: AUTOMATED NEUTROPHIL # 2.5 TH/MM3 (1.8-7.7); BASOPHIL % 0.4 % (0.0-2.0); EOSINOPHIL # 0.1 TH/MM3 (0-0.4); EOSINOPHIL % 2.9 % (0.0-4.0); HEMATOCRIT 36.4 % (39.0-51.0); LYMPH % 24.7 % (9.0-44.0); MEAN CELL VOLUME 93.9 FL (80.0-100.0); MEAN CORPUSCULAR HEMOGLOBIN 31.3 PG (27.0-34.0); MEAN CORPUSCULAR HGB CONC 33.3 % (32.0-36.0); MONO % 8.9 % (0.0-8.0); NEUT % 63.1 % (16.0-70.0); PLATELET COUNT 81 TH/MM3 (150-450); RED BLOOD COUNT 3.87 MIL/MM3 (4.50-5.90); RED CELL DISTRIBUTION WIDTH 17.1 % (11.6-17.2); WHITE BLOOD COUNT 3.9 TH/MM3 (4.0-11.0)
[2017-01-17 06:54] LABS: POTASSIUM 3.8 MEQ/L (3.5-5.1)
[2017-01-17 06:59] LABS: HEMO FLAGS AUTO DIFF
[2017-01-17 07:11] LABS: BICARBONATE 26.2 MEQ/L (21.0-32.0); CALCIUM-PROTEIN CORRECTED 7.9 MG/DL (8.5-10.1); TOTAL BILIRUBIN ADULT 2.5 MG/DL (0.2-1.0)
[2017-01-17 07:27] LABS: PLATELET ESTIMATE SMEAR LOW (NORMAL); PLATELET MORPHOLOGY NORMAL (NORMAL); SCAN/DIFF AUTO DIFF CONFIRMED
[2017-01-17 08:00] VITALS: BP 157/93; PULSE 79; RESP 17; TEMP 97.9; O2SAT 96
[2017-01-17 08:43] LABS: APTT (PATIENT) 29.4 SEC (24.3-30.1); INTERNATIONAL NORMALIZED RATIO 1.2 RATIO; PROTHROMBIN TIME - PATIENT 13.2 SEC (9.8-11.6)
--- NOTE | 2017-01-17 08:43 | HHI.PR ---
Subjective History of Present Illness Patient feel weak and tired still c/o difficulity in speech MRI / MRA of Brain within normal limits Neurology/ Oncology input noted. DC plan when ok with neurology and oncology. Patient refused Lumber puncture further work still in progress. d/w JUSTIN Spaulding at bed side. Review of Systems Constitutional Constitutional: Fatigue, Weakness Vitals/Results Intake & Output 01/16/17 01/16/17 01/17/17 15:00 23:00 07:00 Intake Total 1100 ml 280 ml Output Total 250 ml 250 ml Balance 850 ml 30 ml Intake Oral 1100 ml 280 ml Output Urine Total 250 ml 250 ml # Voids 4 # Bowel Movements 1 0 Vital Signs Vital Signs Date Time Temp Pulse Resp B/P Pulse Ox O2 Delivery O2 Flow Rate FiO2 01/17/17 00:00 97.7 84 16 153/75 95 01/16/17 20:00 99.5 98 18 124/82 93 01/16/17 17:17 98.2 87 19 142/80 97 01/16/17 12:00 97.2 96 18 143/74 95 CBC/BMP: 01/17/17 0612 01/17/17 0612 Lab Results Laboratory Tests Test 01/17/17 06:12 White Blood Count 3.9 TH/MM3 Red Blood Count 3.87 MIL/MM3 Hemoglobin 12.1 GM/DL Hematocrit 36.4 % Mean Corpuscular Volume 93.9 FL Mean Corpuscular Hemoglobin 31.3 PG Mean Corpuscular Hemoglobin 33.3 % Concent Red Cell Distribution Width 17.1 % Platelet Count 81 TH/MM3 Mean Platelet Volume 10.8 FL Neutrophils (%) (Auto) 63.1 % Lymphocytes (%) (Auto) 24.7 % Monocytes (%) (Auto) 8.9 % Eosinophils (%) (Auto) 2.9 % Basophils (%) (Auto) 0.4 % Neutrophils # (Auto) 2.5 TH/MM3 Lymphocytes # (Auto) 1.0 TH/MM3 Monocytes # (Auto) 0.3 TH/MM3 Eosinophils # (Auto) 0.1 TH/MM3 Basophils # (Auto) 0.0 TH/MM3 CBC Comment AUTO DIFF Differential Comment AUTO DIFF CONFIRMED Platelet Estimate LOW Platelet Morphology Comment NORMAL Sodium Level 138 MEQ/L Potassium Level 3.8 MEQ/L Chloride Level 104 MEQ/L Carbon Dioxide Level 26.2 MEQ/L Anion Gap 8 MEQ/L Blood Urea Nitrogen 9 MG/DL Creatinine 0.54 MG/DL Estimat Glomerular Filtration 153 ML/MIN Rate Random Glucose 75 MG/DL Calcium Level 7.0 MG/DL Protein Corrected Calcium 7.9 MG/DL Total Bilirubin 2.5 MG/DL Aspartate Amino Transf 587 U/L (AST/SGOT) Alanine Aminotransferase 66 U/L (ALT/SGPT) Alkaline Phosphatase 337 U/L Total Protein 5.4 GM/DL Albumin 1.8 GM/DL Physical Exam General General Appearance: No Acute Distress, Comfortable Eyes Eye Exam: Pupils Equal, Pupils Reactive, Sclera White, Extraocular Movement Intact Throat Throat Exam: Oral Mucosa [place] & Moist, Oral Pharynx Normal Neck Neck Exam: Neck Supple, Trachea Midline Pulmonary Resp Exam: Clear Bilaterally, Breath Sounds Equal, No Distress Cardiology CV Exam: Regular, Normal Sinus Rhythm Musculoskeletal MS Exam: Normal Tone Integumentary Skin Exam: Clear, Warm, Dry, Intact Extremeties Extremities Exam: No Edema Neurologic Neuro Exam: Alert, Awake, Oriented, Moving All Extremities Psychiatric Psych Exam: Appropriate Responses VTE Prophylaxis VTE Prophylaxis Device: SCDs PUD Prophylasis PUD Prophylaxis: Protonix Assessment/Plan Assessment/Plan ASSESSMENT/PLAN 1. This is a 66-year male who came to the ER diagnosed with slurred speech, difficulty in swallowing and left-sided facial weakness rule out stroke. Check the patients swallow evaluation... within normal limits The patient was given aspirin. We will continue that. CT brain does not show anything acute. The neurology is input noted. Neuro Check every 6-hour. MRI / MRA of Brain within normal limits Further recommendation per neurology. 2. 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 3. History of inconclusive cancer with most likely metastasis to the liver and the patient seeing the oncologist at [place], oncology input noted. 4. History of hypertension. Continue home medications. 5. History of arthritis. Continue home medications. 6. High liver function tests, most likely secondary to metastatic liver disease. 7. Anemia. checked iron study, B12, folic acid level...within normal limits. 8. Deep venous thrombosis prophylaxis, SCD. 9. Gastrointestinal prophylaxis Protonix 40 mg p.o. daily. 10. Hyperlipidemia start Lipitor 10 mg PO Daily. 10. We are going to manage the patient daily basis, make recommendations on a daily basis. DC plan when ok with neurology and oncology. Discussed Condition with: Patient Isrrael Escalante MD Jan 17, 2017 08:43
[2017-01-17] MEDS: ATORVASTATIN 10 MG TAB PO SCH (08:51)
[2017-01-17] MEDS: CALCIUM CARBONATE 500 MG CHEWABLE TAB PO SCH ×3 (08:52→17:24)
[2017-01-17] MEDS: PANTOPRAZOLE SOD 40 MG DELAYED RELEASE TAB PO SCH (08:52)
[2017-01-17] MEDS: ENALAPRIL MALEATE 10 MG TAB PO SCH (08:52)
[2017-01-17] MEDS: MORPHINE SULFATE 4 MG/ML INJ IV PUSH PRN ×2 (11:26→20:36)
[2017-01-17 12:00] VITALS: BP 141/85; PULSE 75; RESP 18; TEMP 97.7; O2SAT 97
[2017-01-17 16:00] VITALS: BP 143/83; PULSE 97; RESP 18; TEMP 98.4; O2SAT 95
--- NOTE | 2017-01-17 18:50 | PD.ONC.PN ---
Subjective Subjective Remarks Pt making our plans with [facility], state that they called him for an appt . He plans to make an appt at [facility] for his throat 01/19/17. He had appt w/ Dr. Gan 01/16, he has records of bx and from Dr. Santizo in the out pt clinic. Pt can be DC from oncology standpoint. Spoke to the nurse Anastasiia on Monday 10:52AM - OK for DC from heme onc standpoint. Objective Data Date Time Temp Pulse Resp B/P Pulse Ox O2 Delivery O2 Flow Rate FiO2 01/17/17 18:27 18 01/17/17 16:00 98.4 97 18 143/83 95 01/17/17 12:00 97.7 75 18 141/85 97 01/17/17 11:34 18 01/17/17 08:00 97.9 79 17 157/93 96 01/17/17 00:00 97.7 84 16 153/75 95 01/16/17 20:00 99.5 98 18 124/82 93 01/17/17 01/17/17 01/17/17 07:00 15:00 23:00 Intake Total 280 ml 550 ml Output Total 250 ml Balance 30 ml 550 ml Result Diagram: 01/17/17 0612 01/17/17 0612 Laboratory Results Laboratory Tests Test 01/17/17 01/17/17 06:12 07:30 White Blood Count 3.9 TH/MM3 Red Blood Count 3.87 MIL/MM3 Hemoglobin 12.1 GM/DL Hematocrit 36.4 % Mean Corpuscular Volume 93.9 FL Mean Corpuscular Hemoglobin 31.3 PG Mean Corpuscular Hemoglobin 33.3 % Concent Red Cell Distribution Width 17.1 % Platelet Count 81 TH/MM3 Mean Platelet Volume 10.8 FL Neutrophils (%) (Auto) 63.1 % Lymphocytes (%) (Auto) 24.7 % Monocytes (%) (Auto) 8.9 % Eosinophils (%) (Auto) 2.9 % Basophils (%) (Auto) 0.4 % Neutrophils # (Auto) 2.5 TH/MM3 Lymphocytes # (Auto) 1.0 TH/MM3 Monocytes # (Auto) 0.3 TH/MM3 Eosinophils # (Auto) 0.1 TH/MM3 Basophils # (Auto) 0.0 TH/MM3 CBC Comment AUTO DIFF Differential Comment AUTO DIFF CONFIRMED Platelet Estimate LOW Platelet Morphology Comment NORMAL Sodium Level 138 MEQ/L Potassium Level 3.8 MEQ/L Chloride Level 104 MEQ/L Carbon Dioxide Level 26.2 MEQ/L Anion Gap 8 MEQ/L Blood Urea Nitrogen 9 MG/DL Creatinine 0.54 MG/DL Estimat Glomerular Filtration 153 ML/MIN Rate Random Glucose 75 MG/DL Calcium Level 7.0 MG/DL Protein Corrected Calcium 7.9 MG/DL Total Bilirubin 2.5 MG/DL Aspartate Amino Transf 587 U/L (AST/SGOT) Alanine Aminotransferase 66 U/L (ALT/SGPT) Alkaline Phosphatase 337 U/L Total Protein 5.4 GM/DL Albumin 1.8 GM/DL Prothrombin Time 13.2 SEC Prothromb Time International 1.2 RATIO Ratio Activated Partial 29.4 SEC Thromboplast Time Administered Medications Medications (Trade) Dose Ordered Sig/Pablo Route PRN Reason Start Time Stop Time Status Last Admin Dose Admin Sodium Chloride (NS 1000 ml Inj) 1,000 ml @ 125 mls/hr Q8H IV 01/13/17 20:00 01/17/17 11:25 Morphine Sulfate (Morphine Inj) 4 mg Q3H PRN IV PUSH PAIN SCALE 5 TO 10 01/13/17 23:30 01/17/17 11:26 Calcium Carbonate (Tums Chew) 500 mg TID PO 01/14/17 09:00 01/17/17 17:24 Pantoprazole Sodium (Protonix) 40 mg DAILY PO 01/14/17 09:00 01/17/17 08:52 Enalapril Maleate (Vasotec) 20 mg DAILY PO 01/14/17 09:00 01/17/17 08:52 Oxycodone HCl (OxyCONTIN CR) 10 mg Q6H PO 01/14/17 10:00 01/17/17 17:25 Atorvastatin Calcium (Lipitor) 10 mg DAILY PO 01/16/17 10:00 01/17/17 08:51 Objective Remarks GENERAL: Well-nourished, well-developed patient. SKIN: Warm and dry. HEAD: Normocephalic. EYES: No scleral icterus. No injection or drainage. NECK: Supple, trachea midline. No JVD or lymphadenopathy. LYMPHATIC: No adenopathy. CARDIOVASCULAR: Regular rate and rhythm without murmurs. RESPIRATORY: Breath sounds equal bilaterally. No accessory muscle use. GASTROINTESTINAL: Abdomen distended. EXTREMITIES: No cyanosis, or edema. MUSCULOSKELETAL: Atrophy R arm and R chest. Assessment/Plan Problem List: (1) Primary liver malignancy Status: Acute Plan: Metastatic to acetabulum. Biopsy showed to pt that it is positive. Pt not very forth coming with information, secretive with another agenda. Recommend that he be DC home from Oncology standpoint to follow up as out pt and to proceed with his plans. Appt at [facility] for his throat 01/19/17, clinical trial appt 01/30/17. He can reschedule appt w/ Dr. Gan 01/16, he has records of bx and from Dr. Santizo in the out pt clinic. Assessment 66 y/o male h/o polio dx with metastatic HCC Plan DC home so pt may follow up at [facility] as per his plan. He can reschedule appt with [facility] if he desires. OK for DC from hem/onc standpoint. Rufina Hunter MD Jan 17, 2017 18:50
[2017-01-17 20:00] VITALS: BP_SYST 145; PULSE 99; RESP 18; TEMP 99; O2SAT 93
[2017-01-18] MEDS: MORPHINE SULFATE 4 MG/ML INJ IV PUSH PRN ×2 (00:39→08:32)
[2017-01-18] MEDS: oxyCODONE HCL 10 MG CONTROLLED RELEASE TAB PO SCH ×2 (00:40→05:58)
[2017-01-18] MEDS: SODIUM CHLOR 0.9% 1000 ML INJ 1,000 ML IV SCH (04:00)
[2017-01-18 08:00] VITALS: BP 142/85; PULSE 90; RESP 17; TEMP 98.3; O2SAT 96
--- NOTE | 2017-01-18 08:08 | HHI.PR ---
Subjective History of Present Illness Patient feel weak and tired still c/o difficulity in speech MRI / MRA of Brain within normal limits Neurology/ Oncology input noted. Patient refused Lumber puncture further work still in progress. d/w [facility] to [place] home per neurology, Review of Systems Constitutional Constitutional: Fatigue, Weakness Vitals/Results Intake & Output 01/17/17 01/17/17 01/18/17 15:00 23:00 07:00 Intake Total 550 ml 180 ml 480 ml Output Total 150 ml 150 ml Balance 550 ml 30 ml 330 ml Intake Oral 550 ml 180 ml 480 ml Output Urine Total 150 ml 150 ml # Bowel Movements 0 0 Vital Signs Vital Signs Date Time Temp Pulse Resp B/P Pulse Ox O2 Delivery O2 Flow Rate FiO2 01/17/17 20:00 99.0 99 18 145/ 93 01/17/17 18:27 18 01/17/17 16:00 98.4 97 18 143/83 95 01/17/17 12:00 97.7 75 18 141/85 97 01/17/17 11:34 18 CBC/BMP: 01/17/17 0612 01/17/17 0612 Physical Exam General General Appearance: No Acute Distress, Comfortable Eyes Eye Exam: Pupils Equal, Pupils Reactive, Sclera White, Extraocular Movement Intact Throat Throat Exam: Oral Mucosa [place] & Moist, Oral Pharynx Normal Neck Neck Exam: Neck Supple, Trachea Midline Pulmonary Resp Exam: Clear Bilaterally, Breath Sounds Equal, No Distress Cardiology CV Exam: Regular, Normal Sinus Rhythm Musculoskeletal MS Exam: Normal Tone Integumentary Skin Exam: Clear, Warm, Dry, Intact Extremeties Extremities Exam: No Edema Neurologic Neuro Exam: Alert, Awake, Oriented, Moving All Extremities Psychiatric Psych Exam: Appropriate Responses VTE Prophylaxis VTE Prophylaxis Device: SCDs PUD Prophylasis PUD Prophylaxis: Protonix Assessment/Plan Assessment/Plan ASSESSMENT/PLAN 1. This is a 66-year male who came to the ER diagnosed with slurred speech, difficulty in swallowing and left-sided facial weakness rule out stroke. Check the patients swallow evaluation... within normal limits The patient was given aspirin. We will continue that. CT brain does not show anything acute. The neurology is input noted. Neuro Check every 6-hour. MRI / MRA of Brain within normal limits Further recommendation per neurology. 2. 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 3. 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 4. History of hypertension. Continue home medications. 5. History of arthritis. Continue home medications. 6. High liver function tests, most likely secondary to metastatic liver disease. 7. Anemia. checked iron study, B12, folic acid level...within normal limits. 8. Deep venous thrombosis prophylaxis, SCD. 9. Gastrointestinal prophylaxis Protonix 40 mg p.o. daily. 10. Hyperlipidemia start Lipitor 10 mg PO Daily. OK to [place] home per neurology, f/u with pcp/ neurology/ oncology 1 week. Discussed Condition with: Patient Isrrael Escalante MD Jan 18, 2017 08:08
[2017-01-18] MEDS: CALCIUM CARBONATE 500 MG CHEWABLE TAB PO SCH (08:26)
[2017-01-18] MEDS: ATORVASTATIN 10 MG TAB PO SCH (08:26)
[2017-01-18] MEDS: ENALAPRIL MALEATE 10 MG TAB PO SCH (08:27)
[2017-01-18] MEDS: PANTOPRAZOLE SOD 40 MG DELAYED RELEASE TAB PO SCH (08:27)
[2017-01-18] MEDS ORDERED: LIPI10TA PO (08:31)
== END 2017-01-18 11:50 | disposition home or self-care (01) | DRG 392 ==
LOC: PHED 18:44 → PHEDA 20:04 → PH3B 20:42
PROVIDERS: ADMIT Family Medicine; ATTEND Family Medicine
DX: R13.10 Dysphagia, unspecified (principal); D61.818 Other pancytopenia; R64 Cachexia; C78.7 Secondary malignant neoplasm of liver and intrahepatic bile duct; C79.51 Secondary malignant neoplasm of bone; R18.8 Other ascites; K74.60 Unspecified cirrhosis of liver; R29.810 Facial weakness; R47.1 Dysarthria and anarthria; Z86.12 Personal history of poliomyelitis; M24.521 Contracture, right elbow; I10 Essential (primary) hypertension; M19.90 Unspecified osteoarthritis, unspecified site; D64.9 Anemia, unspecified; E78.5 Hyperlipidemia, unspecified; Z87.891 Personal history of nicotine dependence; B19.20 Unspecified viral hepatitis C without hepatic coma; R79.1 Abnormal coagulation profile; Z92.3 Personal history of irradiation; Z68.25 Body mass index [BMI] 25.0-25.9, adult
CPT/HCPCS: 70450; 70544; 70553; 76705; 80048; 80053; 80061; 80076; 82550; 82607; 82746; 83540; 83550; 83735; 84100; 84155; 84443; 84484; 85025; 85610; 85730; 93005; A9579; J2060; J2270; J7030